=== PATIENT | male | born 1950 | race Caucasian/White ===

== ENCOUNTER 2022-07-01 23:49 | Emergency (ER) | payer BC, MEDICARE ==
[~2022-07-01] VITALS: Ht 167.6 cm; Wt 73.0 kg
[~2022-07-01 23:49] MED LIST: ASPI-1497 PO; ATORVASTATIN; BENA40TA91 PO; CARV3.1242 PO; CARVEDILOL; EFFIENT; GLYBURIDE; LEVO25TA7 PO; PRAS10TA6 PO; PRAV40TA58 PO
[2022-07-02] MEDS ORDERED: NA PHOS,M-B/NA PHOS,DI-BA ENEMA 118ML PR ONE (01:45)
[2022-07-02] MEDS ORDERED: MAGN296S70 MT (04:27)
[2022-07-02 04:35] VITALS: BP 120/69
== END 2022-07-02 05:59 | disposition home or self-care (01) ==
LOC: ER 23:49
DX: K59.00 Constipation, unspecified (principal); I25.2 Old myocardial infarction; I10 Essential (primary) hypertension; E78.00 Pure hypercholesterolemia, unspecified; E11.9 Type 2 diabetes mellitus without complications; Z98.890 Other specified postprocedural states; Z79.899 Other long term (current) drug therapy
CPT/HCPCS: 74176; 99284